=== PATIENT | female | born 1990 | race African-American/Black ===

== ENCOUNTER 2020-02-04 19:16 | Emergency (ER) | payer SELFPAY ==
--- NOTE | 2020-02-04 19:22 | ED.DENTAL ---
HPI - Dental/Oral General Chief complaint: Dental/Oral Stated complaint: Tooth Ache Time Seen by Provider: 02/04/20 19:36 Source: patient and RN notes reviewed Mode of arrival: ambulatory Limitations: no limitations History of Present Illness HPI Narrative: 29-year-old female presents with concern for left upper dental pain. Reports a broken tooth for about a month, reports pain worsened yesterday while she was eating. Reports left facial swelling. Denies fever, malaise, body aches, foul taste in her mouth, difficulty swallowing, drooling. MD Complaint: tooth pain Location: Tooth # (14) Related Data Home Medications Medication Instructions Recorded Confirmed Daily Multi-Vitamin 02/04/20 Nexplanon 02/04/20 Allergies Allergy/AdvReac Type Severity Reaction Status Date / Time No Known Allergies Allergy Verified 01/06/19 12:46 Review of Systems Review of Systems: Narrative: CONSTITUTIONAL: Denies malaise, chills, sweats, or fever. EYES: Denies visual changes, redness, or discharge. ENT: Reports left upper dental pain and facial swelling CARDIOVASCULAR: Denies chest pain, palpitations, or edema. RESPIRATORY: Denies cough or dyspnea. GASTROINTESTINAL: Denies abdominal pain, nausea, vomiting SKIN: Denies rash or itching. MUSCULOSKELETAL: Denies myalgia. NEUROLOGIC: Denies headache. All systems reviewed & are unremarkable except as noted in HPI and below PMFSH Comments At time of signature, agree with nursing past medical, surgical, social and family history. There is no relevant family history pertinent to the presenting complaint Exam Narrative: Exam Narrative: GENERAL: Well-appearing, well-nourished, and in no acute distress. HEAD: Normocephalic, atraumatic. EYES: PERRLA, conjunctivae clear ENT: Nares clear. Mucous membranes moist. Oropharynx without edema, erythema or lesions. Tooth #14 broken, [place], gum erythema without periapical abscess NECK: Supple. CHEST: No respiratory distress. Speaks in full sentences. HEART: Regular rate and rhythm. SKIN: Warm, dry, no rash. NEURO: Alert and oriented x3. PSYCH: Normal mood and affect Course Course Emergency Course: Patient is aware of diagnosis, understands and agrees to treatment plan. Anticipatory guidance given. Patient agrees to follow-up as directed and is aware of reasons to seek care at the emergency department. Portions of this record may have been created with voice recognition software Vital Signs Vital signs: Vital Signs Temperature 97.5 F L 02/04/20 19:32 Pulse Rate 121 H 02/04/20 19:32 Respiratory Rate 18 02/04/20 19:32 Blood Pressure 133/91 H 02/04/20 19:32 Pulse Oximetry 99 02/04/20 19:32 Temperature 97.5 F L 02/04/20 19:32 Pulse Rate 121 H 02/04/20 19:32 Respiratory Rate 18 02/04/20 19:32 Blood Pressure 133/91 H 02/04/20 19:32 Pulse Oximetry 99 02/04/20 19:32 Reviewed. Patient has been instructed to follow up with her primary care provider within the next week regarding her elevated blood pressure today. MDM - Dental/Oral MDM Narrative Medical decision making narrative: Patients pain and complaint coupled with physical findings are consistant with dentalgia. There are no focal signs of space occupying lesions that are compromising to the airway; no dysphagia, odynophagia, dysphonia, or dyspnea. No uvular deviation or soft palate edema. Patient is non-toxic appearing. The floor of the mouth is soft with no signs of Louie's Angina; no induration below mandible, no neck pain. Patient is without trismus or drooling and able to swallow secretions. Patient is felt appropriate for discharge home with dental follow up. Critical Care Time Critical Care Time Critical Care Time: No Discharge Plan Discharge Clinical Impression: Toothache Patient Disposition: Home, Self-Care Condition: Stable Instructions: Antibiotic Form, Dental Abscess (ED) Additional Instructions: Take antibiotic as directed Neal
[2020-02-04 19:32] VITALS: BP 133/91; PULSE 121; RESP 18; TEMP 36.4; O2SAT 99
== END 2020-02-04 19:41 | disposition home or self-care (01) ==
LOC: EXPCOLL 19:27
PROVIDERS: Emergency Provider Nurse Practitioner
DX: K08.89 Other specified disorders of teeth and supporting structures (principal)
CPT/HCPCS: 99213; G0463

== ENCOUNTER 2021-12-27 15:51 | Emergency (ER) | payer OTHER, SELFPAY ==
[2021-12-27 16:47] VITALS: BP 109/62; PULSE 94; RESP 16; TEMP 36.6; O2SAT 99
--- NOTE | 2021-12-27 18:06 | ED.URI ---
HPI - URI/Sore Throat General Chief Complaint: Upper Respiratory Infection Stated Complaint: uri Time Seen by Provider: 12/27/21 18:06 Source: patient, RN notes reviewed and old records reviewed Mode of arrival: ambulatory Limitations: no limitations History of Present Illness HPI Narrative: 31-year-old female who is 19 weeks presents to [facility] care with progressively increased symptoms of sinus congestion, headache, facial sinus pressure,ears popping since yesterday. Patient reports that she has abnormal bad smelling when she breaths through her nose. Patient states that she does have history of seasonal allergies and has been taking Claritin and Tylenol for her symptoms. MD elicited complaint: rhinorrhea, nasal congestion and sinus pain Treatments prior to arrival: acetaminophen and other (Claritin) Related Data Home Medications Medication Instructions Recorded Confirmed Daily Multi-Vitamin 02/04/20 Allergies Allergy/AdvReac Type Severity Reaction Status Date / Time No Known Allergies Allergy Verified 01/06/19 12:46 Review of Systems Review of Systems: CONSTITUTIONAL: Denies fever, chills, or sweats. EYES: Denies visual changes, redness, or discharge. ENT: Positive rhinorrhea, congestion,no sore throat, ears popping, sinus pressure CARDIOVASCULAR: Denies chest pain, palpitations, or edema. RESPIRATORY: Denies cough or dyspnea. GASTROINTESTINAL: Denies abdominal pain, nausea, vomiting, or diarrhea. GENITOURINARY: Denies dysuria or hematuria. SKIN: Denies rash or itching. MUSCULOSKELETAL: Denies back pain, joint pain, or myalgia. NEUROLOGIC: Positive headache, no numbness, or weakness. PSYCHIATRIC: Denies anxiety or depression. All systems reviewed & are unremarkable except as noted in HPI and below PMFSH Past Medical History Medical History (Updated 12/28/21 @ 00:00 by Vashti Daemon) History of dental problems Seasonal allergies Social History Social History (Updated 12/31/21 @ 10:19 by Perri Cruz NP) Smoking status: Never smoker Alcohol intake: former Alcohol use details: social none presently is Substance use type: does not use Living arrangements: with family Gender identity (if verbalized by the patient): Female Comments At time of signature, agree with nursing past medical, surgical, social and family history. There is no relevant family history pertinent to the presenting complaint Exam Narrative: GENERAL: Well-appearing, well-nourished, and in no acute distress. HEAD: Normocephalic, atraumatic. EYES: PERRLA and EOMI. ENT: Nares red with clear rhinorrhea no epistaxis. Mucous membranes moist.TM's normal with dull light reflex, throat with mild redness, no lesions or exudates or tonsil swelling, post nasal drainage noted NECK: Supple. no lymphadenopathy CHEST: Clear to auscultation. No respiratory distress HEART: Regular rate and rhythm. No murmur heard. Normal peripheral pulses. ABDOMEN: Soft, nontender, nondistended, normal active bowel sounds. EXTREMITIES: Normal range of motion. No edema. SKIN: Warm, dry, no rash. NEURO: No focal deficits. Alert and oriented x3. Course Course Level of Care: Express Care Visit Vital Signs Vital signs: Vital Signs Temperature 36.6 C 12/27/21 16:47 Pulse Rate 94 12/27/21 16:47 Respiratory Rate 16 12/27/21 16:47 Blood Pressure 109/62 12/27/21 16:47 Pulse Oximetry 99 12/27/21 16:47 Oxygen Delivery Room Air 12/27/21 16:47 Temperature 36.6 C 12/27/21 16:47 Pulse Rate 94 12/27/21 16:47 Respiratory Rate 16 12/27/21 16:47 Blood Pressure 109/62 12/27/21 16:47 Pulse Oximetry 99 12/27/21 16:47 Oxygen Delivery Room Air 12/27/21 16:47 MDM - URI/Sore Throat Differential Diagnosis Differential diagnosis: Likely upper respiratory infection, otitis media, sinusitis, viral infection and other (Seasonal allergies, bacterial sinusitis,) Medical Records Attestation: I reviewed the
== END 2021-12-27 18:30 | disposition home or self-care (01) ==
PROVIDERS: Emergency Provider Registered Nurse
DX: J32.9 Chronic sinusitis, unspecified (principal)
CPT/HCPCS: 99213; G0463

== ENCOUNTER 2022-01-21 13:45 | Emergency (ER) | payer OTHER, SELFPAY ==
[2022-01-21 13:48] VITALS: BP 105/63; PULSE 85; RESP 16; TEMP 36.3; O2SAT 100
[2022-01-21 14:41] LABS: SARS-CoV-2 RNA PCR Negative
--- NOTE | 2022-01-21 15:50 | ED.URI ---
HPI - URI/Sore Throat General Chief Complaint: Upper Respiratory Infection Stated Complaint: upper resp Time Seen by Provider: 01/21/22 15:48 Source: patient Mode of arrival: ambulatory Limitations: no limitations History of Present Illness HPI Narrative: Patient is a 31-year-old female who presents the ED with report of sinus congestion. Patient reports having sinus issues since the beginning of November. She c/o congestion, sinus pressure, and runny nose. She has been taking Claritin daily and occasional Tylenol for discomfort. Has not tried anything else. Patient was seen at an urgent care on 12/27 and prescribed a 10-day course of amoxicillin. She denied much improvement with antibiotics and still feels like symptoms have persisted. Denies any fever, chills, epistaxis, eye redness or discharge, cough, chest pain, difficulty breathing. Patient is currently 25 weeks . She denies any issues with . Denies any nausea, vomiting, abdominal pain, vaginal bleeding. Related Data Home Medications Medication Instructions Recorded Confirmed Daily Multi-Vitamin 02/04/20 Allergies Allergy/AdvReac Type Severity Reaction Status Date / Time No Known Allergies Allergy Verified 01/06/19 12:46 Review of Systems Review of Systems: CONSTITUTIONAL: Denies fever, chills, or sweats. EYES: Denies visual changes, redness, or discharge. ENT: Reports rhinorrhea, congestion, sinus pressure. Denies epistaxis, sore throat, or otalgia. CARDIOVASCULAR: Denies chest pain. RESPIRATORY: Denies cough or dyspnea. GASTROINTESTINAL: Denies abdominal pain, nausea, vomiting. GENITOURINARY: Denies vaginal bleeding, dysuria or hematuria. All systems reviewed & are unremarkable except as noted in HPI and below PMFSH Past Medical History Medical History (Updated 01/21/22 @ 16:10 by Florecita Lopez PA-C) History of dental problems Seasonal allergies Surgical History Surgical History (Updated 01/21/22 @ 17:29 by Florecita Lopez PA-C) No pertinent past surgical history Social History Social History Smoking status: Never smoker Alcohol intake: former Alcohol use details: social none presently is Substance use type: does not use Gender identity (if verbalized by the patient): Female Exam Narrative: GENERAL: Well appearing, well-nourished, non-toxic, in no acute distress. HEAD: Normocephalic, atraumatic. EYES: PERRL/EOMI, conjunctivae clear bilaterally. No erythema or drainage. NOSE: Normal, no drainage noted. No significant erythema or swelling of turbinates bilaterally. No polyps. Minimal tenderness to palpation over maxillary sinuses bilaterally. EARS: TMS clear, with good light reflex. No erythema or bulging. THROAT: Pharynx clear, no exudate. MMs moist. No erythema. No tonsillar or uvular swelling/erythema. NECK: Supple. No LAD. RESPIRATORY: Airway patent, respirations nonlabored. Clear to auscultation bilaterally, no rales, rhonchi, wheezing. CARDIOVASCULAR: Regular rate and rhythm without murmurs, rubs, or gallops. Peripheral pulses 2+ and equal bilaterally. MUSCULOSKELETAL: Moves all extremities. Strength/ROM intact without gross deformities. SKIN: Warm, dry, normal color. No rashes. NEURO: A&O X3. Speech clear. Cranial nerves II-XII grossly intact. Steady gait. No ataxic movements. PSYCHIATRIC: Appropriate mood and affect. Normal interaction. Course Vital Signs Vital signs: Vital Signs Temperature 97.4 F L 01/21/22 13:48 Pulse Rate 85 01/21/22 13:48 Respiratory Rate 16 01/21/22 13:48 Blood Pressure 105/63 01/21/22 13:48 Pulse Oximetry 100 01/21/22 13:48 Oxygen Delivery Room Air 01/21/22 13:48 Temperature 97.4 F L 01/21/22 13:48 Pulse Rate 80 01/21/22 16:50 Respiratory Rate 16 01/21/22 16:50 Blood Pressure 136/80 01/21/22 16:50 Pulse Oximetry 99 01/21/22 16:50 Oxygen Delivery Room Air 01/21/22 13:48 [facility] -
[2022-01-21 16:50] VITALS: BP 136/80; PULSE 80; RESP 16; O2SAT 99
== END 2022-01-21 16:51 | disposition home or self-care (01) ==
PROVIDERS: Emergency Provider Emergency Medicine
DX: O99.512 Diseases of the respiratory system complicating pregnancy, second trimester (principal); J32.9 Chronic sinusitis, unspecified; Z20.822 Contact with and (suspected) exposure to COVID-19; Z3A.25 25 weeks gestation of pregnancy
CPT/HCPCS: 99283; C9803; U0003; U0005

== ENCOUNTER 2022-04-18 11:59 | Observation (INO) | payer OTHER, SELFPAY ==
[2022-04-18 12:26] VITALS: BMI 28.7
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
[2022-04-18 12:36] VITALS: BP 114/72; PULSE 81; TEMP 36.2
[2022-04-18 12:45] VITALS: BP 113/71; PULSE 87
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
--- NOTE | 2022-04-18 12:53 | PC.NURSE ---
Hermes Petit CNM updated on reactive FHT's, no contractions, slight lower abdominal tenderness with palpation, but no flinching or guarding. Pt's blood type is O positive. CNM wants pt monitored for 4 hrs. OK to let pt eat.
[2022-04-18 13:18] VITALS: BP 112/71; PULSE 81
[2022-04-18 14:01] VITALS: BP 114/74; PULSE 89
[2022-04-18 15:01] VITALS: BP 112/73; PULSE 91
[2022-04-18 16:01] VITALS: BP 117/74; PULSE 91
--- NOTE | 2022-04-18 16:10 | PC.NURSE ---
Hermes PONCEM informed pt's 4 hrs of monitoring is completed. No FHR decels and not zuleyka. OK to discharge to home.
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
== END 2022-04-18 16:23 | disposition home or self-care (01) ==
PROVIDERS: Admitting Provider Obstetrics & Gynecology; Visit Provider Obstetrics & Gynecology
DX: O26.93 Pregnancy related conditions, unspecified, third trimester (principal); R10.9 Unspecified abdominal pain; Z3A.34 34 weeks gestation of pregnancy; V49.40XA Driver injured in collision with unspecified motor vehicles in traffic accident, initial encounter
CPT/HCPCS: G0378; G0379

== ENCOUNTER 2022-05-16 05:03 | Inpatient (IN) | payer OTHER, SELFPAY ==
[2022-05-16] VITALS (121 sets, daily range): BP systolic 96–146; BP diastolic 54–118; PULSE 74–122; RESP 18; TEMP 36.6–37.1; O2SAT 77–100; BMI 29.8
--- OUTSIDE RECORDS SUMMARY | 2022-05-16 05:08 | XMS_ITS | Encounter Summary ---
:1990 Author Reason for Visit OB visit Assessment and Plan Assessment Note Patient is ___weeks . Discussed plan. 1. Routine care Discussion Note: None recorded.Patient educational handouts: No information available. Plan of Care Reminders Provider Appointments Ob Routine 05/25/2022 1:30PM García Todd MD ? U/S OB BPP 05/25/2022 1:00PM Ultrasoundrn Schedule, TECH Lab None recorded. ? ? Referral None recorded. ? ? Procedures None recorded. ? ? Surgeries None recorded. ? ? Imaging None recorded. ? ? Medications Name Start Date ? ? amoxicillin 500 mg-potassium clavulanate 125 mg tablet ? TAKE 1 TABLET BY MOUTH EVERY 12 HOURS FOR 10 DAYS DIRECTED fluticasone propionate 50 mcg/actuation nasal spray,ocampo spension ? SHAKE LIQUID AND USE 2 SPRAYS IN EACH NOSTRIL DAILY ID NOW COVID-19 Test Kit ? TEST DIRECTED TODAY [place] (PF) 275 mg/1.1 mL subcutaneous auto-injector ? get 1 injection weekly at provider office Vitamin ? Medications Administered None recorded. Vitals Height Weight BMI Blood Pressure 5 ft 2 in 155 lbs 28.3 kg/m2 115/78 mm[Hg] Results Lab Results None recorded. Allergies Code Code System Name Reaction Severity Onset NKDA ? ? ? Problems Name Status Onset Date Source ? Active 01/10/2022 ? Premature Delivery Active ? ? Procedures Date Name Performed by ? 05/04/2022 , Obstetric, Limited [place]
--- OUTSIDE RECORDS SUMMARY | 2022-05-16 05:08 | XMS_ITS | Encounter Summary ---
:1990 Author Reason for Visit injection Pt. is here today for Lula injection. Injection given in left arm. lot: [id number] exp: 02/2023. dorian Young. Assessment and Plan 1. History of premature delivery ? [place] (PF) 275 mg/1.1 mL subcutaneou s auto-injector Discussion Note: None recorded.Patient educational handouts: No [...] at provider office Vitamin ? Medications Administered Name Date ? ? [place] (PF) 275 mg/1.1 mL subcutaneous auto-injector [id number] get 1 injection weekly at provider office Vitals Height 5 ft 2 in Results Lab Results None recorded. Allergies Code Code System Name Reaction Severity Onset NKDA ? ? ? Problems Name Status Onset Date Source ? Active 01/10/2022 ?
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
--- OUTSIDE RECORDS SUMMARY | 2022-05-16 05:08 | XMS_ITS ---
:1990 Author Care Team Providers Name Role Phone García Todd Primary Care Provider Unavailable Allergies Code Code System Name Reaction Severity Status Onset NKDA ? Medications Name Status Start Date Stop Date ? ? amoxicillin 500 mg capsule Completed ? 01/10 TAKE 1 CAPSULE BY MOUTH THREE TIMES DAILY UNTIL ALL TAKEN amoxicillin 500 mg-potassium clavulanate 125 mg tablet Active ? Not available TAKE 1 TABLET BY MOUTH EVERY 12 HOURS FOR 10 DAYS DIRECTED amoxicillin 875 mg tablet Completed ? 2021 TAKE 1 TABLET BY MOUTH EVERY 12 HOURS UNTIL ALL TAKEN fluticasone propionate 50 mcg/actuation nasal spray,suspension A ctive ? Not available SHAKE LIQUID AND USE 2 SPRAYS IN EACH NOSTRIL DAILY ID NOW COVID-19 Test Kit Active ? Not ritchie ilable TEST DIRECTED TODAY [place] (PF) 275 mg/1.1 mL subcutaneous auto-injector Active ? Not available get 1 injection weekly at provider office metronidazole 500 mg tablet Completed ? 12/23 TAKE 1 TABLET BY MOUTH TWICE DAILY. DO NOT CONSUME ALCOHOL WHILE TAKING THIS PRODUCT Vitamin Active ? Not available Problems Name Status Onset Date Source ? Active 01/10/2022 ? Premature Delivery Active ? ? Procedures Date Name Performed by ? 01/10/2022 US, Obstetric, 2Nd or 3Rd Trimester Nena eisenberg [address] [place] [address] ([address]) 02/06/2022 US, Obstetric, Follow-up [place]
--- OUTSIDE RECORDS SUMMARY | 2022-05-16 05:08 | XMS_ITS | Encounter Summary ---
:1990 Author Reason for Visit None recorded. Assessment and Plan 1. Anomaly of kidney ? US, obstetric, limited Discussion Note: None recorded.Patient educational handouts: No information available. Plan of Care Reminders Provider Appointments Ob Routine 05/25/2022 García fox MD 1:30PM ? U/S OB BPP 05/25/2022 Ultrasoundrn DOMINIC Hester 1:00PM Lab None recorded. ? ? Referral None recorded. ? ? Procedures None recorded. ? ? Surgeries None recorded. ? ? Imaging US, Obstetric, Limited 05/04/2022 Sharmila paul Medications Name Start Date ? [...] Performed by ? 05/04/2022 US, Obstetric, Limited [place] [address]
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
--- OUTSIDE RECORDS SUMMARY | 2022-05-16 05:08 | XMS_ITS | Encounter Summary ---
:1990 Author Reason for Visit injection Pt. is here today for Lula injection. Injection given in the left arm. Lot: [id number] exp: 02/2023. [facility]: 82647-689-06. dorian Young. Assessment and Plan 1. History of premature delivery ? [place] (PF) 275 mg/1.1 mL subcutaneou s auto-injector [...] COVID-19 Test Kit ? TEST DIRECTED TODAY [place] (PF) 275 mg/1.1 mL subcutaneous auto-injector ? get 1 injection weekly at provider office Vitamin ? Medications Administered Name Date ? ? [place] (PF) 275 mg/1.1 mL subcutaneous auto-injector [id number] get 1 injection weekly at provider office Vitals Height 5 ft 2 in Results Lab Results None recorded. Allergies Code Code System Name Reaction Severity Onset NKDA ? ? ? Problems Name Status Onset Date Source ? Active 0
--- OUTSIDE RECORDS SUMMARY | 2022-05-16 05:08 | XMS_ITS | Encounter Summary ---
:1990 Author Reason for Visit OB visit [id number] OB VISIT Assessment and Plan Assessment Note Patient is [...] COVID-19 Test Kit ? TEST DIRECTED TODAY [place] (PF) 275 mg/1.1 mL subcutaneous auto-injector ? get 1 injection weekly at provider office Vitamin ? Medications Administered None recorded. Vitals Height Weight BMI Blood Pressure 5 ft 2 in 162.2 lbs 29.7 kg/m2 130/85 mm[Hg] Results Lab Results None recorded. Allergies Code Code System Name Reaction Severity Onset NKDA ? ? ? Problems Name Status Onset Date Source ? Active 01/10/2022 ? Premature Delivery Active ? ? Procedures Date Name Performed by ? 05/04/2022 US, Obstet
--- OUTSIDE RECORDS SUMMARY | 2022-05-16 05:08 | XMS_ITS | Encounter Summary ---
[...] BMI Blood Pressure 5 ft 2 in 161 lbs 29.4 kg/m2 134/87 mm[Hg] Results Lab Results None recorded. Allergies Code Code System Name Reaction Severity Onset NKDA ? ? ? Problems Name Status Onset Date Source ? Active 01/10/2022 ? Premature Delivery Active ? ? Procedures Date Name Performed by ? 05/04/2022 , Obstetric, Limited [place]
--- OUTSIDE RECORDS SUMMARY | 2022-05-16 05:08 | XMS_ITS | Encounter Summary ---
:1990 Author Reason for Visit None recorded. Assessment and Plan 1. History of premature delivery ? [place] (PF) 275 mg/1.1 mL subcutaneou s auto-injector [...] [place] (PF) 275 mg/1.1 mL subcutaneous auto-injector [id number] get 1 injection weekly at provider office Vitals None recorded. Results Lab Results None recorded. Allergies Code Code System Name Reaction Severity Onset NKDA ? ? ? Problems Name Status Onset Date Source ? Active 01/10/2022 ? Premature Delivery Active ? ? Procedures Date Name Performed by ? 03/09/2022 US, Obstetric, Follow-up [place]
--- OUTSIDE RECORDS SUMMARY | 2022-05-16 05:08 | XMS_ITS | Encounter Summary ---
:1990 Author Reason for Visit None recorded. Assessment and Plan 1. Anomaly of kidney ? US, obstetric, follow-up ? US, obstetric, biophysical profile + non-stress test Discussion Note: None recorded.Patient educational handouts: No information available. Plan of Care Reminders Provider Appointments Ob Routine 05/25/2022 García fox MD 1:30PM ? U/S OB BPP 05/25/2022 Ultrasoundrn [place], 1:00PM TECH Lab None recorded. ? ? Referral None recorded. ? ? Procedures None recorded. ? ? Surgeries None recorded. ? ? Imaging US, Obstetric, Follow-up 05/15/2022 [place] ? US, Obstetric, Biophysical 05/15/2022 [place] Profile + Non-stress Test Medications Name Start Date ? ? amoxicillin 500 mg-potassium clavulanate 125 mg tablet ? TAKE 1 TABLET BY MOUTH EVERY 12 HOURS FOR 10 DAYS DIRECTED fluticasone propionate 50 mcg/actuation nasal spray,ocampo spension ? SHAKE LIQUID AND USE 2 SPRAYS IN EACH NOSTRIL DAILY ID NOW COVID-19 Test Kit ? TEST DIRECTED TODAY [place] (PF) 275 mg/1.1 mL subcutaneous auto-injector ? get 1 injection weekly at provider office Vitamin ? Medications Administered None recorded. Vitals None recorded. Results Lab Results None recorded. Allergies Code Code System Name Reaction Severity Onset NKDA ? ? ? Problems Name Status Onset Date Source ? Active 01/10/2022 ? Premature Delivery Active ? ? Procedures D
--- OUTSIDE RECORDS SUMMARY | 2022-05-16 05:08 | XMS_ITS | Encounter Summary ---
:1990 Author Reason for Visit injection Pt. is here today for lula injection. Injection given in the left arm. lot: [id number] exp: 02/2023 [facility]:[id number]. dorian Young. Assessment and Plan 1. History [...] COVID-19 Test Kit ? TEST DIRECTED TODAY [place] (PF) 275 mg/1.1 mL subcutaneous auto-injector ? get 1 injection weekly at provider office Vitamin ? Medications Administered Name Date ? ? [place] (PF) 275 mg/1.1 mL subcutaneous auto-injector [id number]:01:00 get 1 injection weekly at provider office Vitals Height 5 ft 2 in Results Lab Results None recorded. Allergies Code Code System Name Reaction Severity Onset NKDA ? ? ? Problems Name Status Onset Date Source ? Active
--- OUTSIDE RECORDS SUMMARY | 2022-05-16 05:08 | XMS_ITS | Encounter Summary ---
:1990 Author Reason for Visit None recorded. Assessment and Plan 1. Small for gestational age fetus ? non-stress test Discussion Note: None recorded.Patient educational handouts: No information available. Plan of Care Reminders Provider Appointments Ob Routine 05/25/2022 1:30PM García Todd MD ? U/S OB BPP 05/25/2022 1:00PM Ultrasoundrn Schedule, TECH Lab None recorded. ? ? Referral None recorded. ? ? Procedures None recorded. ? ? Surgeries None recorded. ? ? Imaging Non-stress Test 05/15/2022 [place] Medications Name Start Date ? ? amoxicillin [...] Performed by ? 05/04/2022 US, Obstetric, Limited [place] [address] [place] [address] ([address])
--- OUTSIDE RECORDS SUMMARY | 2022-05-16 05:08 | XMS_ITS | Encounter Summary ---
:1990 Author Reason for Visit OB visit patient here for ob visit 30.5 weeks Assessment and Plan Assessment Note Patient is [...] BMI Blood Pressure 5 ft 2 in 151.6 lbs 27.7 kg/m2 110/76 mm[Hg] Results Lab Results None recorded. Allergies Code Code System Name Reaction Severity Onset NKDA ? ? ? Problems Name Status Onset Date Source ? Active 01/10/2022 ? Premature Delivery Active ? ? Procedures Date Name Performed by ?
--- OUTSIDE RECORDS SUMMARY | 2022-05-16 05:08 | XMS_ITS | Encounter Summary ---
[...] BMI Blood Pressure 5 ft 2 in 153 lbs 28 kg/m2 116/76 mm[Hg] Results Lab Results None recorded. Allergies Code Code System Name Reaction Severity Onset NKDA ? ? ? Problems Name Status Onset Date Source ? Active 01/10/2022 ? Premature Delivery Active ? ? Procedures Date Name Performed by ? 03/09/2022 US, Obstetric, Follow-up [place]
--- OUTSIDE RECORDS SUMMARY | 2022-05-16 05:08 | XMS_ITS | Encounter Summary ---
:1990 Author Reason for Visit injection Pt. is here today for Lula injection. Injection given in left arm. dorian Young. Assessment and Plan 1. History of premature delivery ? [place] (PF) 275 mg/1.1 mL subcutaneou s auto-injector [...] ? Medications Administered Name Date ? ? [place] (PF) 275 mg/1.1 mL subcutaneous auto-injector [id number]:20:35 INJECT 1 PEN SUBCUTANEOUSLY EVERY WEEK AT THE PHYSICIA N'S OFFICE Vitals None recorded. Results Lab Results None recorded. Allergies Code Code System Name Reaction Severity Onset NKDA ? ? ? Problems Name Status Onset Date Source ? Active 01/10/2022 ? Premature Delivery Active ? ? Procedures
--- OUTSIDE RECORDS SUMMARY | 2022-05-16 05:09 | XMS_ITS | Encounter Summary ---
:1990 Author Reason for Visit injection Pt. is here today for first Lula injec tion. Injection given in back of right upper arm. lot: [id number] exp: 11/2022. Assessment and Plan 1. History of premature [...] [place] (PF) 275 mg/1.1 mL subcutaneous auto-injector [id number]:21 patient to get injection weekly at provider office [facility] [place] 36wks Vitals Height 5 ft 2 in Results Lab Results None recorded. Allergies Code Code System Name Reaction Severity Onset NKDA ? ? ? Problems Name Status Onset Date Source ? Active
--- NOTE | 2022-05-16 05:47 | LDADM ---
This patient, Judie Fernandez, was admitted to Labor/Delivery/Recovery 102 on 05/16/22 at 05:03. Plans for labor, pain management and were discussed with patient. Patient/family oriented to hospital policies and general routines including ID bracelet, bed and alarms, visiting hours, pain management, procedures, bathroom and other care routines, personal items, smoking policy, room service/diet and guest tray routines, security routines, and visiting hours. Patient/Family are encouraged to report perceived risks to care and to ask questions if they do not understand what they are told or what they should do. See OBIX for further documentation.
[2022-05-16 05:49] LABS: Basophils Absolute Auto 0.1 K/mm3 (0.0-0.1); Basophils Percent Auto 0.5 % (0.2-1.2); Eosinophils Absolute Auto 0.3 K/mm3 (0-0.3); Hemoglobin 10.9 g/dL (12.0-15.0); Immature Granulocyte Absolute 0.14 K/mm3 (0.00-0.031); Immature Granulocyte Percent A 1.3 % (0-0.5); Lymphocytes Absolute Auto 1.82 K/mm3 (0.9-3.2); Lymphocytes Percent Auto 16.5 % (18.3-44.2); Mean Corpuscular HGB Conc 34.1 g/dl (32-36); Mean Corpuscular Hemoglobin 30.5 pg (26-34); Mean Corpuscular Volume 89.6 fl (80-100); Mean Platelet Volume 9.8 fl (7.4-10.4); Monocytes Percent Auto 9.2 % (2.6-8.5); Neutrophils Absolute Auto 7.7 K/mm3 (1.3-6.7); Neutrophils Percent Auto 69.5 % (45.5-73.1); Platelet Count Result 170 k/mm3 (150-375); Red Blood Count 3.57 M/mm3 (4.2-5.4); Red Cell Distribution Width 13.7 % (11.5-14.5)
[2022-05-16] MEDS: OXYTOCIN 30 UNITS/NS 500 ML 30 UNITS/500 ML BAG IV CONT (05:58)
[2022-05-16] MEDS: LACTATED RINGERS 1,000 ML 125 ML IV CONT (05:59)
[2022-05-16 06:36] LABS: Rapid Plasma Reagin Non-Reactive (NonReactive)
--- NOTE | 2022-05-16 07:50 | WPDOBADMIT ---
Obstetrics - Admit Note Admission Note: record reviewed. No pertinent additions to the history and/or any subsequent changes in the physical findings that are not consistent with the expected course of the were found. IOL, with polycystic kidneys, with decreasing head circumference. Pt has a hx of labor and did receive jenifer this . Unable to AROM, SVE /-3 Additions to the history and/or subsequent changes in the physical findings follow. None.
--- NOTE | 2022-05-16 21:50 | P.PCNOB_ITS ---
OB - Delivery Note Procedure Delivery date: 05/16/22 Procedure: Events: Intrauterine Growth Restriction (IUGR) Induction method: AROM and Per Pitocin Protocol Delivery monitor: External FHT and Internal Uterine Route of delivery: Laceration Description: None Specimen: Yes Quantitative Blood Loss (ml): 70 Anesthesia type: Epidural Disposition: Floor Narrative: mom and baby stable and doing skin to skin [place] Baby Date of : 05/16/22 Time of : 21:37 Weeks of gestation at delivery: 38 gender: Female Weight (pounds): 5 Weight (ounces): 7 presentation: vertex position: Left Occiput Anterior Placenta delivery description: Spontaneous Cord Vessel Description: 3 Vessels, Clamped/Cut and Delayed Cord Clamping score one minute: 9 score five minutes: 9
[2022-05-16] MEDS: WITCH HAZEL 40 PADS 1 PAD TOPICAL (23:42)
[2022-05-16] MEDS: BENZOCAINE 20% AER SPR (*SP) 56 GM CAN 1 SPRAY TOPICAL (23:42)
[2022-05-17 03:55] VITALS: BP 116/78; PULSE 81; RESP 18; TEMP 36.6; O2SAT 100
[2022-05-17] MEDS: IBUPROFEN 600 MG TABLET PO ×2 (04:11→19:30)
[2022-05-17 04:35] LABS: Hematocrit 29.7 % (37.0-47.0); Hemoglobin 9.9 g/dL (12.0-15.0)
[2022-05-17] MEDS: DOCUSATE SODIUM 100 MG CAPSULE PO ×2 (07:45→16:00)
[2022-05-17] MEDS: MULTIVIT/MIN/PREN/FOL AC/IRON TABLET 1 TAB PO (07:45)
[2022-05-17] MEDS: ACETAMINOPHEN 325 MG TABLET 650 MG PO ×2 (07:45→16:00)
[2022-05-17] MEDS: POLYSACCHARIDE IRON COMPLEX 150 MG CAPSULE PO ×2 (07:45→16:00)
--- NOTE | 2022-05-17 08:59 | P.PNOB_ITS ---
OB - PN: Subj Subjective Date/time seen: 05/17/22 08:59 Patient comments: no complaints, pain well controlled and tolerating diet [place] baby status: doing well and bottle feeding well feeding status: exclusively bottle feeding OB - PN: Obj Data Labs CBC & Chem 7: 05/17/22 04:03 Labs: Laboratory Results - last 24 hr 05/17/22 04:03 Hgb 9.9 L Hct 29.7 L OB - PN A/P Plan day: 1 Plan: routine care Time Spent With Patient Time: Total time spent is greater than 50% in coordination of care (as documented) at patient's floor/unit and/or counseling patient: Time with patient: less than 15 minutes Exam Narrative: NAD abdomen soft, nontender, fundus firm below the umbilicus Extremities nontender, 1+ edema
--- NOTE | 2022-05-17 10:49 | WPDANLDPN2 ---
Anes-Prog Note L&D Date/Time: 05/17/22 10:49 Comfortable throughout: labor and delivery Neuraxial method: epidural Epidural/Spinal procedure site: clean & non-tender Neuro status: Neuro function grossly intact. Cardiovascular status: normal Respiratory status: normal Airway patency: baseline Mental status: baseline Post-Op hydration status: normal Vital Signs: Last Vital Signs Temp 36.6 C 05/17/22 03:55 Pulse 81 05/17/22 03:55 Resp 18 05/17/22 03:55 BP 116/78 05/17/22 03:55 Pulse Ox 100 05/17/22 03:55 O2 Del Method Room Air 05/17/22 07:45 Pain score (VAS): 07/03 I/O: Intake & Output 05/16/22 05/17/22 05/17/22 23:59 07:59 15:59 Intake Total 240 Output Total 150 Balance -150 240 Post-procedural complaints: none Patient feedback: Patient satisfied with anesthetic care.
[2022-05-17 11:27] VITALS: BP 126/80; PULSE 84; RESP 18; TEMP 36.2; O2SAT 99
[2022-05-17 15:53] VITALS: BP 125/80; PULSE 76; RESP 18; TEMP 36.7; O2SAT 100
[2022-05-17 16:15] VITALS: PULSE 76; RESP 18; O2SAT 100
[2022-05-17 19:32] VITALS: BP 122/84; PULSE 80; RESP 18; TEMP 36.7; O2SAT 98
[2022-05-18] MEDS: IBUPROFEN 600 MG TABLET PO (04:45)
[2022-05-18 08:10] VITALS: BP 130/82; PULSE 78; RESP 18; TEMP 36.6; O2SAT 100
--- NOTE | 2022-05-18 09:13 | PM.OBPNVD ---
OB - PN: Subj Subjective Date/time seen: 05/18/22 09:13 Patient comments: no complaints and pain well controlled baby status: doing well and bottle feeding well OB - PN: Obj Data Labs CBC & Chem 7: 05/17/22 04:03 OB - PN A/P Plan day: 2 Plan: routine care and discharge home Time Spent With Patient Time: Total time spent is greater than 50% in coordination of care (as documented) at patient's floor/unit and/or counseling patient: Time with patient: less than 15 minutes Exam Narrative: NAD abdomen soft, nontender, fundus firm below the umbilicus Extremities nontender, 1+ edema
--- NOTE | 2022-05-18 09:17 | PM.OBDSVD ---
DS: Admitting Diagnosis Discharge Date 05/18/22 Admitting Diagnosis IUP 38w, IUGR, BPP 6/8 DS: Discharge Diagnosis Discharge Diagnosis (1) , delivered: Code(s): O80 - Encounter for full-term uncomplicated delivery Status: Acute OB - DS: Summary Hospital Course Hospital Course: Judie was admitted at 38.3 for IOL secondary to IUGR, small head circumference, and nonreassuring testing. She proceeded to have an uncomplicated vaginal delivery and course and was discharged home on PPD 2. OB Procedures : NST and Ultrasound OB Procedures Intrapartum: Spontaneous Vag Delivery OB Procedures: : None Peripartum Data Infant Delivery Method: Natural Vaginal complications: none Status at Discharge Functional status at discharge: independent ambulation Time Spent with Patient Time attestation: Total time spent providing and/or coordinating discharge services: Exam Narrative: NAD abdomen soft, appropriately tender Ext non tender, 1+ edema DS: Data Data Completed and Pending Pending studies at discharge: Pending at discharge 05/16/22 21:44 Surgical [PTH] Routine Discharge Plan Discharge Attending physician on discharge: Karime Sanchez Discharging Clinician: Karime Sanchez Anticipated Discharge Date/Time: 05/18/22 09:15 Patient Disposition: Home, Self-Care Activity: pelvic rest Diet: regular Patient Instructions: Antibiotic Form Stand Alone Forms: General Discharge Information Follow-up/Referrals: Toshia Todd MD [Physician] - 4 Weeks Discharge Medications: Continued PNV cmb#95-ferrous fumarate-FA [] 28 mg iron- 800 mcg Tablet 1 tablet PO DAILY Discontinued [place] (PF) 275 mg/1.1 mL auto-injector 275 mg SUBCUT WEEKLY Date of admission: 05/16/22 05:03 Primary Care Provider: PHYSICIAN,PRESS WASHER Admitting Provider: Toshia Todd Attending physician on admission: Toshia Todd Condition: Stable
[2022-05-18 09:56] VITALS: PULSE 78; RESP 18; O2SAT 100
== END 2022-05-18 11:40 | disposition home or self-care (01) | DRG 560 ==
LOC: ANHOB2 05-18 10:03 → ANHLDR 05-21 11:19 → ANHOB2 05-21 11:19
PROVIDERS: Advanced Practice Midwife; Admitting Provider Obstetrics & Gynecology; Visit Provider Obstetrics & Gynecology
DX: O36.5930 Maternal care for other known or suspected poor fetal growth, third trimester, not applicable or unspecified (principal); Z37.0 Single live birth; Z3A.38 38 weeks gestation of pregnancy
CPT/HCPCS: 36415; 85014; 85018; 85025; 86592; 86850; 86900; 86901; 88307; A9270; J2590; J2795; J7120

== ENCOUNTER 2022-11-05 17:12 | Emergency (ER) | payer OTHER, SELFPAY ==
[2022-11-05 17:23] VITALS: BP 130/89; PULSE 79; RESP 16; TEMP 36.4; O2SAT 99
[2022-11-05 17:24] VITALS: BP 130/89; PULSE 79; RESP 16; TEMP 36.4; O2SAT 99
--- NOTE | 2022-11-05 17:37 | ED.URI ---
HPI - URI/Sore Throat General Chief Complaint: Upper Respiratory Infection Stated Complaint: chest tightness; congestion; cough; hot flashes Time Seen by Provider: 11/05/22 17:45 Source: patient and RN notes reviewed Mode of arrival: ambulatory Limitations: no limitations History of Present Illness HPI Narrative: 32-year-old female presents with concern for for day history of headache, sneezing, itchy throat, chest tightness, cough. Reports she is taking Claritin and nasal spray without relief. She reports her daughter has similar symptoms. Reports her older daughter had strep throat last week. She denies fever MD elicited complaint: cough and sore throat Related Data Home Medications Medication Instructions Recorded Confirmed vit no.95-ferrous 1 tablet PO DAILY 04/18/22 04/18/22 fumarate 28 mg-folic acid 800 mcg tablet () Allergies Allergy/AdvReac Type Severity Reaction Status Date / Time No Known Allergies Allergy Verified 04/28/22 15:41 Review of Systems Review of Systems: CONSTITUTIONAL: Denies malaise, chills, sweats, or fever. EYES: Denies visual changes, redness, or discharge. ENT: Reports rhinorrhea, congestion, sneezing, scratchy throat. Denies sinus pain, otalgia and sore throat. CARDIOVASCULAR: Denies chest pain, palpitations, or edema. RESPIRATORY: Reports cough. Denies dyspnea. GASTROINTESTINAL: Denies abdominal pain, nausea, vomiting, diarrhea SKIN: Denies rash or itching. MUSCULOSKELETAL: Denies myalgia. NEUROLOGIC: Reports headache. All systems reviewed & are unremarkable except as noted in HPI and below PMFSH Past Medical History Medical History (Updated 11/05/22 @ 18:18 by Sydnie Ozuna NP) History of dental problems Seasonal allergies Surgical History Surgical History (Updated 01/21/22 @ 17:29 by Florecita Culp PA-C) No pertinent past surgical history Family History Family History (Updated 04/28/22 @ 15:43 by Vero Collier RN) Father Heart disease Diabetes mellitus Hypertension Grandparent Heart disease Diabetes mellitus Hypertension Social History Social History Smoking status: Current every day smoker Tobacco type: cigarettes Second hand tobacco smoke exposure: Yes Alcohol intake: former Alcohol use details: social none presently is Substance use: never Substance use type: does not use Lack of Transportation: No Lack of Food: Never True Current Housing: I Have Housing Concerned About Future Housing: No Difficulty Paying Gas/Electric Bills: No Difficulty Paying for Meds: No Currently Unemployed: No Education: High School Diploma/GED Difficulty w/ Childcare or Family Care: No Living arrangements: with family Gender identity (if verbalized by the patient): Female Spiritual care concerns: No Comments At time of signature, agree with nursing past medical, surgical, social and family history. There is no relevant family history pertinent to the presenting complaint Exam Narrative: GENERAL: Well-appearing, well-nourished, and in no acute distress. HEAD: Normocephalic EYES: PERRLA, conjunctivae clear ENT: Nares clear, turbinates edematous and erythematous, clear discharge. Mucous membranes moist. TM pearly dooley with sharp light reflex bilaterally; no tragal tenderness. Oropharynx not erythematous without lesions. Tonsils not enlarged and without exudate, no drooling, no hoarseness, no trismus, uvula midline. NECK: Supple. No lymphadenopathy CHEST: Clear to auscultation, breath sounds equal. No wheezing, rhonchi, rales, or stridor. No respiratory distress, speaks in full sentences. HEART: Regular rate and rhythm. No murmur heard. SKIN: Warm, dry, no rash. NEURO: Alert and oriented x3. PSYCH: Normal mood and affect Course Course Emergency Course: Patient is aware of diagnosis, understands and agrees to treatment
== END 2022-11-05 18:40 | disposition home or self-care (01) ==
PROVIDERS: Emergency Provider Nurse Practitioner
DX: J06.9 Acute upper respiratory infection, unspecified (principal); F17.210 Nicotine dependence, cigarettes, uncomplicated
CPT/HCPCS: 87081; 87880; 99213; G0463

== ENCOUNTER 2022-12-24 03:07 | Emergency (ER) | payer OTHER, SELFPAY ==
[2022-12-24] VITALS (7 sets, daily range): BP systolic 124–141; BP diastolic 72–99; PULSE 99–130; RESP 14–23; TEMP 37; O2SAT 97–100
--- NOTE | ~2022-12-24 | XR_ITS ---
Clinical Indication: Shortness of breath PA and lateral views of the chest: Comparison: None Findings: The lungs are clear, without evidence of focal consolidation or pleural effusion. Cardiome diastinal silhouette is within normal limits. Bones and soft tissues are unremarkable. Impression: Normal chest. Reviewed, dictated and finalized at [facility]. Impression: Normal chest.
--- NOTE | 2022-12-24 03:24 | ECG_ITS ---
Measurements Intervals [place] Rate: 109 P: 55 SD: 184 QRS: 44 QRSD: 94 T: 44 QT: 322 QTc: 434 Interpretive Statements SINUS TACHYCARDIA BORDERLINE T WAVE ABNORMALITY- ANTERIOR LEADS ABNORMAL ECG NO PREVIOUS ECG AVAILABLE FOR COMPARISON Electronically Signed On 12-24-2022 6:52:27 CDT by Eyad Archer D.O.
[2022-12-24 03:39] LABS: Basophils Percent Auto 0.7 % (0.2-1.2); Eosinophils Absolute Auto 0.3 K/mm3 (0-0.3); Eosinophils Percent Auto 4.7 % (0-4.4); Hematocrit 40.9 % (37.0-47.0); Hemoglobin 13.6 g/dL (12.0-15.0); Immature Granulocyte Absolute 0.02 K/mm3 (0.00-0.031); Immature Granulocyte Percent A 0.3 % (0-0.5); Lymphocytes Absolute Auto 1.24 K/mm3 (0.9-3.2); Lymphocytes Percent Auto 20.9 % (18.3-44.2); Mean Corpuscular HGB Conc 33.3 g/dl (32-36); Mean Corpuscular Volume 93.2 fl (80-100); Mean Platelet Volume 9.5 fl (7.4-10.4); Monocytes Absolute Auto 0.2 K/mm3 (0.1-0.6); Monocytes Percent Auto 3.7 % (2.6-8.5); Neutrophils Absolute Auto 4.1 K/mm3 (1.3-6.7); Neutrophils Percent Auto 69.7 % (45.5-73.1); Platelet Count Result 218 k/mm3 (150-375); Red Blood Count 4.39 M/mm3 (4.2-5.4); Red Cell Distribution Width 13.6 % (11.5-14.5); White Blood Count 5.9 K/mm3 (4.5-10.0)
--- NOTE | 2022-12-24 03:41 | PC.NURSE ---
pt sts that she has been SOB for a while. pt has a bruise on her Left bacillar area. PT sts that she drank 5 shots of tequila tonight. pt placed on monitor. and is in NST w/o ectopy noted. pt is axox4, abc are wnl nad. airway is patent,spontaneous and self maintained. pt denies pain. vss and will continue to monitor. iv established an labs drawn.
--- NOTE | 2022-12-24 03:47 | ED.GENADULT ---
HPI - General Adult General Chief complaint: Shortness of Breath/Dyspnea Stated complaint: bruise to L arm Time Seen by Provider: 12/24/22 03:47 Source: patient and family Mode of arrival: ambulatory Limitations: no limitations History of Present Illness HPI narrative: 32 years old female came to the emergency room because of bruises at the left elbow anteriorly while lifting boxes today at [address] patient also complaining of shortness of breath for the last 3 weeks worse when she go outdoors, better when she is inside the house, she believes allergy is the underlying cause of her shortness of breath. Currently on Claritin as needed. She smokes, she drinks, last drink was 1 hour ago, denies any drug abuse. 7 months , denies any chest pain or leg pain. Related Data Home Medications Medication Instructions Recorded Confirmed vit no.95-ferrous 1 tablet PO DAILY 04/18/22 04/18/22 fumarate 28 mg-folic acid 800 mcg tablet () Allergies Allergy/AdvReac Type Severity Reaction Status Date / Time No Known Allergies Allergy Verified 04/28/22 15:41 Review of Systems Review of Systems: All systems reviewed & are unremarkable except as noted in HPI and below PMFSH Past Medical History Medical History History of dental problems Seasonal allergies Surgical History Surgical History No pertinent past surgical history Family History Family History Father Heart disease Diabetes mellitus Hypertension Grandparent Heart disease Diabetes mellitus Hypertension Social History Social History Smoking status: Current every day smoker Tobacco type: cigarettes Second hand tobacco smoke exposure: Yes Alcohol intake: former Alcohol use details: social none presently is Substance use: never Substance use type: does not use Lack of Transportation: No Lack of Food: Never True Current Housing: I Have Housing Concerned About Future Housing: No Difficulty Paying Gas/Electric Bills: No Difficulty Paying for Meds: No Currently Unemployed: No Education: High School Diploma/GED Difficulty w/ Childcare or Family Care: No Living arrangements: with family Gender identity (if verbalized by the patient): Female Spiritual care concerns: No Exam Narrative: General appearance: Well-developed, well-nourished Skin: Normal color left upper extremity showed 3 x 4 cm ecchymosis at the antecubital area, slightly tender, no anaid-like feeling under the skin, Head: Normocephalic, nontraumatic Eyes: Clear conjunctiva ENT: Oropharynx normal, ears normal, nose normal Neck: Supple, nontender Chest and respiratory: Airway patent, no respiratory distress, no accessory muscle use Heart: Tachycardia Abdomen: Soft, nontender, no organomegaly, quiet bowel sounds Vascular: Normal peripheral pulses, normal capillary refill. Musculoskeletal: Normal range of motion, nontender back Neurologic: Alert and oriented ?3, STICK WELDER is normal as tested, no gross motor deficit Course Reevaluation(s) Reevaluation #1: Patient feeling much better at the time of discharge Date: 12/24/22 Time: 05:42 Vital Signs Vital signs: Vital Signs Temperature 37.0 C 12/24/22 03:11 Pulse Rate 130 H 12/24/22 03:11 Respiratory Rate 14 12/24/22 03:11 Blood Pressure 134/96 H 12/24/22 03:11 Pulse Oximetry 100 12/24/22 03:11 Oxygen Delivery Room Air 12/24/22 03:11 Temperature 37.0 C
[2022-12-24 03:51] LABS: Alanine Aminotransferase 18 U/L (6-35); Albumin Level 4.6 g/dL (3.5-5.1); Alkaline Phosphatase 89 U/L (38-126); Anion Gap 11 mmol/L (8-16); Aspartate Amino Transferase 26 U/L (14-36); Bilirubin,Total 0.2 mg/dL (0.2-1.3); Blood Urea Nitrogen 11 mg/dL (7-17); Calcium 8.9 mg/dL (8.4-10.2); Carbon Dioxide 26 mmol/L (22-30); Chloride 113 mmol/L (98-107); Estimated CRCL calculation 58 ml/min; Estimated Glomerular Filt Rate > 60; Glucose 99 mg/dL (65-110); Potassium 3.5 mmol/L (3.4-5.0); Sodium 150 mmol/L (137-145)
[2022-12-24 04:02] LABS: NT Pro B Type Natriuretic Pept 51 pg/mL (19.9-100); Troponin I < 0.012 ng/mL (0.000-0.034)
[2022-12-24 04:25] LABS: INR 0.9; Prothrombin Time 12.4 Seconds (11.1-14.7)
[2022-12-24 04:26] LABS: Partial Thromboplastin Time 31.6 SECONDS (22.3-36.8)
[2022-12-24 04:30] LABS: D Dimer < 0.27 ug/mL (<0.48)
[2022-12-24 05:21] LABS: Ethanol 311 mg/dL (<10)
[2022-12-24 05:27] LABS: Lipase 189 U/L (23-300)
== END 2022-12-24 06:05 | disposition home or self-care (01) ==
PROVIDERS: Emergency Provider Emergency Medicine
DX: S50.02XA Contusion of left elbow, initial encounter (principal); F10.20 Alcohol dependence, uncomplicated; Y90.8 Blood alcohol level of 240 mg/100 ml or more; F17.210 Nicotine dependence, cigarettes, uncomplicated; R00.0 Tachycardia, unspecified; R94.31 Abnormal electrocardiogram [ECG] [EKG]; X58.XXXA Exposure to other specified factors, initial encounter
CPT/HCPCS: 36415; 71046; 80053; 80307; 81025; 83690; 83880; 84484; 85025; 85380; 85610; 85730; 93005; 99284

== ENCOUNTER 2023-02-14 19:02 | Emergency (ER) | payer OTHER, SELFPAY ==
--- NOTE | 2023-02-14 19:11 | ED.URI ---
HPI - URI/Sore Throat General Chief Complaint: Upper Respiratory Infection Stated Complaint: Sore Throat/Cough Time Seen by Provider: 02/14/23 19:11 Source: patient Mode of arrival: ambulatory Limitations: no limitations History of Present Illness HPI Narrative: Patient is a 32-year-old female who presents with right-sided throat pain and cough since this morning. Denies any ear pain, headache, congestion, nausea, vomiting, diarrhea. Has not taken anything for symptoms. Son has similar symptoms Related Data Home Medications Medication Instructions Recorded Confirmed No Home Medications 02/14/23 02/14/23 Allergies Allergy/AdvReac Type Severity Reaction Status Date / Time No Known Allergies Allergy Verified 04/28/22 15:41 Review of Systems Review of Systems: All systems reviewed & are unremarkable except as noted in HPI and below Constitutional: Constitutional: Denies body ache(s), Denies chills, Denies fatigue, Denies fever(s), Denies headache(s), Denies malaise and Denies weakness Eyes: Eyes: Denies blurry vision, Denies itchy eyes and Denies loss of vision ENT: Denies otalgia, Denies headache(s), Denies nasal congestion, Denies sinus pain and Reports sore throat Cardiovascular: Cardiovascular: Denies chest pain, Denies irregular heart rhythm and Denies dyspnea Respiratory: Respiratory: Reports cough and Denies dyspnea Gastrointestinal: Gastrointestinal: Denies abdominal pain, Denies diarrhea, Denies nausea and Denies vomiting Musculoskeletal: Musculoskeletal: Denies back pain, Denies myalgias and Denies arthralgias Integumentary/Breasts: Skin/Breast: Denies pruritus and Denies rash Neurologic: Denies headache(s), Denies loss of vision and Denies weakness Psychiatric: Psychiatric: Reports no additional psychiatric complaints Endocrine: Endocrine: Denies fatigue Allergic/Immunologic: Allergic/Immunologic: Denies itchy eyes PMFSH Past Medical History Medical History History of dental problems Seasonal allergies Surgical History Surgical History No pertinent past surgical history Family History Family History Father Heart disease Diabetes mellitus Hypertension Grandparent Heart disease Diabetes mellitus Hypertension Social History Social History Smoking status: Current every day smoker Tobacco type: cigarettes Second hand tobacco smoke exposure: Yes Alcohol intake: former Alcohol use details: social none presently is Substance use: never Substance use type: does not use Lack of Transportation: No Lack of Food: Never True Current Housing: I Have Housing Concerned About Future Housing: No Difficulty Paying Gas/Electric Bills: No Difficulty Paying for Meds: No Currently Unemployed: No Education: High School Diploma/GED Difficulty w/ Childcare or Family Care: No Living arrangements: with family Gender identity (if verbalized by the patient): Female Spiritual care concerns: No Comments At time of signature, agree with nursing past medical, surgical, social and family history. There is no relevant family history pertinent to the presenting complaint. Exam Const: General: cooperative, healthy appearing, comfortable, no acute distress and well nourished Nutritional Appearance: well nourished Orientation/consciousness: patient oriented x3 Limitations: no limitations HENMT: Head: normal to inspection, normocephalic and atraumatic Ears: hearing grossly normal bilaterally, external ears normal, TM's normal bilaterally, EAC's normal and no periauricular adenopathy Face/Nose/Sinus: Normal external nose present, Normal nasal mucous membranes and turbinates present, normal facial exam, sinuses nontender and face symmetric Face and sinus: nor
[2023-02-14 19:13] VITALS: BP 126/88; PULSE 85; RESP 18; TEMP 36.8; O2SAT 100
== END 2023-02-14 20:04 | disposition home or self-care (01) ==
PROVIDERS: Emergency Provider Nurse Practitioner Family
DX: J06.9 Acute upper respiratory infection, unspecified (principal); F17.210 Nicotine dependence, cigarettes, uncomplicated
CPT/HCPCS: 87081; 87880; 99213; G0463

== ENCOUNTER 2023-02-19 10:49 | Emergency (ER) | payer OTHER, SELFPAY ==
[2023-02-19 10:59] VITALS: BP 139/90; PULSE 86; RESP 16; TEMP 36.4; O2SAT 100
[2023-02-19 12:02] LABS: Appearance Urine Clear (Clear); Color Urine Yellow (Yellow); Glucose Urine UA Negative (Negative); Ketones Urine 1+ mg/dL (Negative); Protein Urine Negative (Negative); Specific Grav Ur 1.004 (1.001-1.035)
[2023-02-19 12:03] LABS: Add Urine Microscopic? YES; Bacteria Urine None Seen /hpf; Bilirubin Urine Negative (Negative); Blood Urine 2+ (Negative); Leukocyte Esterase Ur Negative LEU/UL (Negative); Need Manual Microscopic Reviewed; Nitrate Urine Negative (Negative); Non Pathogenic Casts 0-2; RBC Urine 0-2 /hpf (0-2); Squamous Epithelial Cell Urine None seen /hpf (Few); WBC Urine 0-5 /hpf
--- NOTE | 2023-02-19 12:05 | ED.FEMALEGU ---
HPI - Female Genitourinary General Chief complaint: Urogenital-Female Stated complaint: UTI or kidney infection Time Seen by Provider: 02/19/23 12:05 Source: patient Mode of arrival: ambulatory Limitations: no limitations History of Present Illness HPI Narrative: Ms. Fernandez is a 32-year-old female patient presenting to the clinic today with complaints of possible urinary tract infection. She reports she is having some lower abdominal pain, nausea, vomiting,and low back pain that started on Saturday. Also reports some frequent urination and low urine output.Denies any known fevers but has had some chills. Last bowel movement was yesterday. States that she is also currently on her menses. Related Data Allergies Allergy/AdvReac Type Severity Reaction Status Date / Time No Known Allergies Allergy Verified 02/19/23 11:01 Review of Systems Review of Systems: Pertinent positives per HPI. Patient denies any fever, rash, headache, visual changes, dizziness, cough, runny nose, sore throat, shortness of breath, chest pain, palpitations, constipation. PMFSH Past Medical History Medical History History of dental problems Seasonal allergies Surgical History Surgical History No pertinent past surgical history Family History Family History Father Heart disease Diabetes mellitus Hypertension Grandparent Heart disease Diabetes mellitus Hypertension Social History Social History Smoking status: Current every day smoker Tobacco type: cigarettes Second hand tobacco smoke exposure: Yes Alcohol intake: former Alcohol use details: social none presently is Substance use: never Substance use type: does not use Lack of Transportation: No Lack of Food: Never True Current Housing: I Have Housing Concerned About Future Housing: No Difficulty Paying Gas/Electric Bills: No Difficulty Paying for Meds: No Currently Unemployed: No Education: High School Diploma/GED Difficulty w/ Childcare or Family Care: No Living arrangements: with family Gender identity (if verbalized by the patient): Female Spiritual care concerns: No Exam Narrative: General: Well-developed, well nourished, in no apparent distress. Head: Normocephalic, atraumatic. Cardio: Regular rate and rhythm, s1 and s2 normal, no murmur appreciated. Resp: Clear to auscultation bilaterally, no rhonchi, rales, wheezing or rubs. Abdomen: Soft, pliable, non-distended, bowel sounds present in all quadrants, mild tender to palpation over the bilateral lower abdomen, no organomegly, mild CVAT tenderness bilaterally Course Vital Signs Vital signs: Vital Signs Temperature 36.4 C 02/19/23 10:59 Pulse Rate 86 02/19/23 10:59 Respiratory Rate 16 02/19/23 10:59 Blood Pressure 139/90 02/19/23 10:59 Pulse Oximetry 100 02/19/23 10:59 Oxygen Delivery Room Air 02/19/23 10:59 Temperature 36.4 C 02/19/23 10:59 Pulse Rate 86 02/19/23 10:59 Respiratory Rate 16 02/19/23 10:59 Blood Pressure 139/90 02/19/23 10:59 Pulse Oximetry 100 02/19/23 10:59 Oxygen Delivery Room Air 02/19/23 10:59 MDM - Female Genitourinary MDM Narrative Medical decision making narrative: At the time of visit patient is resting on the exam table. CBC, lipase, CMP, COVID, flu, urinalysis, and bedside was performed in the clinic. CBC and CMP are unremarkable, urinalysis shows blood and ketones in the urine. Bedside test was negative. She is currently on her menses. Is having mild tenderness to the lower abdomen and some low back pain. I suspect patient has gastroenteritis. Will send in prescription for Zofran and have the patient follow-up with her PCP next week
[2023-02-19 12:55] LABS: Basophils Absolute Auto 0.1 K/mm3 (0.0-0.1); Basophils Percent Auto 0.8 % (0.2-1.2); Eosinophils Absolute Auto 0.2 K/mm3 (0-0.3); Hematocrit 42.8 % (37.0-47.0); Hemoglobin 14.1 g/dL (12.0-15.0); Immature Granulocyte Absolute 0.01 K/mm3 (0.00-0.031); Immature Granulocyte Percent A 0.2 % (0-0.5); Lymphocytes Absolute Auto 1.16 K/mm3 (0.9-3.2); Lymphocytes Percent Auto 19.4 % (18.3-44.2); Mean Corpuscular HGB Conc 32.9 g/dl (32-36); Mean Corpuscular Hemoglobin 30.7 pg (26-34); Mean Platelet Volume 9.9 fl (7.4-10.4); Monocytes Absolute Auto 0.4 K/mm3 (0.1-0.6); Monocytes Percent Auto 6.3 % (2.6-8.5); Neutrophils Absolute Auto 4.2 K/mm3 (1.3-6.7); Neutrophils Percent Auto 70.3 % (45.5-73.1); Platelet Count Result 237 k/mm3 (150-375); Red Cell Distribution Width 12.5 % (11.5-14.5)
[2023-02-19 13:13] LABS: Alanine Aminotransferase 29 U/L (6-35); Albumin Level 4.9 g/dL (3.5-5.1); Alkaline Phosphatase 120 U/L (38-126); Anion Gap 8 mmol/L (8-16); Aspartate Amino Transferase 51 U/L (14-36); Bilirubin,Total 0.9 mg/dL (0.2-1.3); Blood Urea Nitrogen 10 mg/dL (7-17); Calcium 9.3 mg/dL (8.4-10.2); Carbon Dioxide 26 mmol/L (22-30); Chloride 102 mmol/L (98-107); Estimated CRCL calculation 103 ml/min; Estimated Glomerular Filt Rate > 60; Glucose 92 mg/dL (65-110); Lipase 52 U/L (23-300); Potassium 3.8 mmol/L (3.4-5.0); Sodium 136 mmol/L (137-145)
[2023-02-19 14:03] LABS: Influenza A QL RT-PCR Negative (Negative); Influenza B QL RT-PCR Negative (Negative); SARS-CoV-2 RNA PCR Negative (Negative)
== END 2023-02-19 14:30 | disposition home or self-care (01) ==
PROVIDERS: General Practice; Emergency Provider Nurse Practitioner Family
DX: K52.9 Noninfective gastroenteritis and colitis, unspecified (principal); Z20.822 Contact with and (suspected) exposure to COVID-19; F17.210 Nicotine dependence, cigarettes, uncomplicated
CPT/HCPCS: 36415; 80053; 81001; 81025; 83690; 85025; 87636; 99283

== ENCOUNTER 2023-05-30 19:29 | Emergency (ER) | payer OTHER, SELFPAY ==
[2023-05-30 19:46] VITALS: BP 138/103; PULSE 98; RESP 16; TEMP 36.6; O2SAT 100
== END 2023-05-30 19:50 | disposition left against medical advice (07) ==
DX: J02.9 Acute pharyngitis, unspecified (principal)
CPT/HCPCS: 99199

== ENCOUNTER 2023-10-08 18:42 | Emergency (ER) | payer OTHER, SELFPAY ==
[2023-10-08 18:49] VITALS: BP 144/98; PULSE 104; RESP 18; TEMP 36.4; O2SAT 100
--- NOTE | 2023-10-08 19:09 | ED.URI ---
HPI - URI/Sore Throat General Chief Complaint: Nausea/Vomiting/Diarrhea Stated Complaint: flu B exposure,fever,stuffy nose,throwing up Time Seen by Provider: 10/08/23 19:09 Source: patient and RN notes reviewed Mode of arrival: ambulatory Limitations: no limitations History of Present Illness HPI Narrative: 33 y/o female presented for c/o cough, nasal congestion, subjective fever, headache, onset 3 days. Reports cough causes chest tightness. Started with nausea and vomiting 2 days ago. Reports about 5 episodes daily of emesis, has not been able to tolerate food. Started with electrolyte solution today and has kept sips down. Taking Tylenol and cold&flu med without any improvement. Reports exposure to flu by her dtr last week. Denies abdominal pain, sob, wheezing, or lethargy. MD elicited complaint: cough Related Data Home Medications Medication Instructions Recorded Confirmed Nexplanon 1 unit implant [id number] 10/08/23 10/08/23 Allergies Allergy/AdvReac Type Severity Reaction Status Date / Time No Known Allergies Allergy Verified 10/08/23 18:46 Review of Systems Review of Systems: CONSTITUTIONAL: Endorses malaise, chills, sweats, fever EYES: Denies visual changes, redness, or discharge ENT: Reports rhinorrhea, congestion, denies sinus pain, otalgia, sore throat CARDIOVASCULAR: Denies chest pain, palpitations, edema RESPIRATORY: Reports cough, post nasal drainage. Denies dyspnea GASTROINTESTINAL: Denies abdominal pain, reports nausea, vomiting SKIN: Denies rash or itching MUSCULOSKELETAL: denies myalgia NEUROLOGIC: reports headache PMFSH Past Medical History Medical History History of dental problems Seasonal allergies Surgical History Surgical History No pertinent past surgical history Family History Family History Father Heart disease Diabetes mellitus Hypertension Grandparent Heart disease Diabetes mellitus Hypertension Social History Social History Smoking status: Current every day smoker Tobacco type: cigarettes Second hand tobacco smoke exposure: Yes Alcohol intake: former Alcohol use details: social none presently is Substance use: never Substance use type: does not use Lack of Transportation: No Lack of Food: Never True Current Housing: I Have Housing Concerned About Future Housing: No Difficulty Paying Gas/Electric Bills: No Difficulty Paying for Meds: No Currently Unemployed: No Education: High School Diploma/GED Difficulty w/ Childcare or Family Care: No Living arrangements: with family Gender identity (if verbalized by the patient): Female Spiritual care concerns: No Exam Narrative: GENERAL: mildly Ill-appearing, nontoxic EYES: PERRLA, conjunctivae clear ENT: Mucous membranes moist. TMs pearly dooley with dull light reflex bilaterally; no tragal tenderness. Oropharynx erythematous without lesions or exudate, no drooling, no hoarseness, no trismus, uvula midline. NECK: Supple. No lymphadenopathy CHEST: Clear to auscultation, breath sounds equal. No wheezing, rhonchi, rales, or stridor. No respiratory distress, speaks in full sentences. HEART: Regular rate and rhythm. No murmur heard. SKIN: Warm, dry, no rash. NEURO: Alert and oriented x3. PSYCH: Normal mood and affect Course Course Emergency Course: Patient is aware of diagnosis, understands and agrees to treatment plan. Anticipatory guidance given. Patient agrees to follow-up as directed and is aware of reasons to seek care at the emergency department. Portions of this record may have been created with voice recognition software Level of Care: Express Care Visit Vital Signs Vital signs: Vital Signs Temperature 97.6 F 10/08/23 18:49 Puls
== END 2023-10-08 19:25 | disposition home or self-care (01) ==
PROVIDERS: Emergency Provider Nurse Practitioner Family
DX: B34.9 Viral infection, unspecified (principal); Z20.822 Contact with and (suspected) exposure to COVID-19; F17.210 Nicotine dependence, cigarettes, uncomplicated
CPT/HCPCS: 87426; 87804; 99213; G0463